=== PATIENT | female | born 1980 | race Caucasian/White ===

== ENCOUNTER 2021-01-27 00:19 | Emergency (ER) | payer MEDICAID ==
[~2021-01-27] VITALS: Ht 157.5 cm; Wt 65.8 kg
--- NOTE | 2021-01-27 00:27 | NUR ---
Patient also states that she is having some vaginal bleeding since yesterday and has used up 2 pads.
--- NOTE | 2021-01-27 00:27 | NUR ---
Patient came to er bed 16 c/o right lower quadrant pain since yesterday. Patient states that the pain comes and goes. Patient states that she is feeling bloated. Patient's last bowel movement was yesterday and states that it was soft and formed with no complications. Patient states that she does not have any pain with urination. Patient is alert and oriented to person, place, and time. Patient is breathing evenly and unlabored on room air. Placed into a new gown. Connected to the monitor.
--- NOTE | 2021-01-27 00:28 | NUR ---
Dr. Marc at bedside.
[2021-01-27] MEDS ORDERED: ACETAMINOPHEN ES 500 MG TABLET ONE (00:36)
[2021-01-27 00:50] LABS: BILIRUBIN,URINE Negative (NEGATIVE); COLOR,URINE YELLOW (YELLOW); LEUKOCYTE ESTERASE ,URINE Negative (NEGATIVE); NITRITE, URINE Negative (NEGATIVE); PROTEIN,URINE Negative (NEGATIVE); UGLUCOSE Negative (NEGATIVE); UROBILINOGEN,URINE 0.2 EU/dL (0.2)
[2021-01-27 00:51] LABS: BASOPHILS % (AUTO) 0.4 % (0.0-2.0); EOSINOPHILS % (AUTO) 2.5 % (0.0-6.0); HEMATOCRIT 34 % (33-45); LYMPHOCYTES # (AUTO) 2.6 /CMM (0.8-4.8); LYMPHOCYTES % (AUTO) 29.5 % (20.0-44.0); MEAN CORPUSCULAR HGB CONC 32 g/dl (31.0-36.0); MEAN CORPUSCULAR VOLUME 85 fL (82-100); MONOCYTES # (AUTO) 0.8 /CMM (0.1-1.30); MONOCYTES % (AUTO) 8.7 % (2.0-12.0); NEUTROPHILS # (AUTO) 5.3 /CMM (1.8-8.9); NEUTROPHILS % (AUTO) 58.9 % (43.0-81.0); PLATELET COUNT (AUTO) 347 /CMM (150-450); RED BLOOD CELL COUNT(AUTO) 4.04 MIL/uL (4.0-5.2)
[2021-01-27] MEDS ORDERED: ACETAMINOPHEN ES 500 MG TABLET PO ONE (01:00)
--- NOTE | 2021-01-27 01:03 | NUR ---
US AT BEDSIDE
[2021-01-27 01:19] LABS: BACTERIA,URINE None seen /HPF (None Seen); SQUAMOUS EPITHELIAL CELL,UR Few /HPF (None Seen); URINE AMORPHOUS URATE Few /HPF (None Seen); WBC,URINE 0-2 /HPF (0-3)
[2021-01-27 01:25] LABS: CALCIUM, SERUM 8.8 mg/dL (8.5-10.1); CREATININE 0.9 mg/dL (0.6-1.3); POTASSIUM 3.4 mmol/L (3.5-5.1)
[2021-01-27 02:43] VITALS: BP 131/81
--- NOTE | 2021-01-27 02:44 | NUR ---
Patient discharged to home in stable condition. Written and verbal after care instructions given. Patient verbalizes understanding of instruction. Pt ambulated out of ED. VSS.
== END 2021-01-27 02:44 | disposition home or self-care (01) ==
LOC: ER 00:23
DX: R10.31 Right lower quadrant pain (principal); R10.32 Left lower quadrant pain; N93.9 Abnormal uterine and vaginal bleeding, unspecified; D64.9 Anemia, unspecified
CPT/HCPCS: 36415; 76856-TC; 80048-TC; 81001; 84702-TC; 84703-TC; 85025-TC; 86850-TC

== ENCOUNTER 2022-04-04 07:11 | Emergency (ER) | payer MEDICAID ==
[~2022-04-04] VITALS: Ht 157.5 cm; Wt 63.5 kg
--- NOTE | 2022-04-04 07:44 | NUR ---
FLU AND COVID PCR SWAB DONE AND SENT TO LAB
--- NOTE | 2022-04-04 08:05 | NUR ---
NO COUGHING NO SOB no distress temp 98.2 d/c instraction given to pt fulluy and verblized understood d/c home stable vs
[2022-04-04 08:11] VITALS: BP 105/61
--- NOTE | 2022-04-05 15:05 | NUR ---
THE PATIENT IS MADE AWARE BEING COVID POSITIVE. EDUCATION PROVIDED. THE PATIENT VERBALIZED UNDERSTANDING.
== END 2022-04-04 08:16 | disposition home or self-care (01) ==
LOC: ER 07:13
DX: U07.1 COVID-19 (principal); Z28.310 Unvaccinated for COVID-19
CPT/HCPCS: 87804; 99283; C9803; U0003